=== PATIENT | male | born 1980 | race Caucasian/White ===

== ENCOUNTER 2022-02-14 17:25 | Emergency (ER) | payer OTHER ==
[~2022-02-14] VITALS: Ht 172.7 cm; Wt 77.0 kg
[2022-02-14 17:39] VITALS: BP 131/83
[2022-02-15] MEDS ORDERED: METHOCARBAMOL 500MG TABLET PO ONE (00:45)
[2022-02-15] MEDS ORDERED: IBUP-2029 MT (01:35)
[2022-02-15] MEDS ORDERED: METH-653 MT (01:35)
== END 2022-02-15 02:00 | disposition home or self-care (01) ==
LOC: ER 17:25
DX: S16.1XXA Strain of muscle, fascia and tendon at neck level, initial encounter (principal); S46.812A Strain of other muscles, fascia and tendons at shoulder and upper arm level, left arm, initial encounter; M25.512 Pain in left shoulder; W22.8XXA Striking against or struck by other objects, initial encounter; Y93.89 Activity, other specified; Y92.89 Other specified places as the place of occurrence of the external cause; Y99.8 Other external cause status; Z90.49 Acquired absence of other specified parts of digestive tract
CPT/HCPCS: 72040; 73030; 99284